=== PATIENT | female | born 1985 | race Caucasian/White ===

== ENCOUNTER 2016-08-31 07:41 | Emergency (ER) | payer MEDICAID, OTHER ==
[~2016-08-31] VITALS: Ht 162.6 cm; Wt 75.0 kg
[2016-08-31 07:43] VITALS: BP 104/65; PULSE 84; RESP 16; TEMP 98.8; O2SAT 99
[2016-08-31] MEDS ORDERED: SODIUM CHLOR 0.9% 1000 ML INJ 1,000 ML IV SCH (08:19)
--- NOTE | 2016-08-31 08:23 | PD ---
HPI Chief Complaint: Abdominal Pain Time Seen by Provider: 08:19 Travel History International Travel<30 days: No Contact w/Intl Traveler<30days: No Traveled to known affect area: No History of Present Illness HPI Patient is a 30-year-old female presents to emergency department with epigastric pain and nausea and vomiting since last night, patient states that she's been having initial food emesis and then followed by yellow emesis. States this happened to her once in the distant past and she cannot member what was diagnosed. She states the abdominal pain is fairly intense. Sharp in nature. Nonradiating. States been gradually worsening. Denies any vaginal bleeding vaginal discharge possibility for . PFSH Past Medical History Depression: Yes ?: Not LMP: 08/22/16 : 5 Para: 2 Miscarriage: 1 : 2 Past Surgical History Section: Yes (X2) Gynecologic Surgery: Yes ( X 2) Social History Alcohol Use: Yes Tobacco Use: Yes (2-3 CIGS/DAY) Substance Use: No Allergies-Medications (Allergen,Severity, Reaction): Coded Allergies: No Known Allergies (Unverified , 08/31/16) Reported Meds & Prescriptions Reported Meds & Active Scripts Active Maalox Max Liq (Rrltdrqv-Nydlzrbik-Ycrcqetyftn Liq) 400-400-40 Mg/5 Ml Susp 10- 20 Ml PO QID PRN Take between meals or as directed. Shake well. Maximum 60 ml/24 hrs. Zofran Odt (Ondansetron Odt) 4 Mg Tab 4 Mg SL Q6HR PRN Review of Systems Except as stated in HPI: all other systems reviewed are Neg Physical Exam Narrative GENERAL: Well-developed well-nourished, no apparent distress, ambulates to and from the bathroom and no distress.. SKIN: Focused skin assessment warm/dry. HEAD: Atraumatic. Normocephalic. EYES: Pupils equal and round. No scleral icterus. No injection or drainage. ENT: No nasal bleeding or discharge. Mucous membranes pink and moist. NECK: Trachea midline. No JVD. CARDIOVASCULAR: Regular rate and rhythm. No murmur appreciated. RESPIRATORY: No accessory muscle use. Clear to auscultation. Breath sounds equal bilaterally. GASTROINTESTINAL: Abdomen soft, non-tender, nondistended. Hepatic and splenic margins not palpable. Dock[place] sign negative, no tenderness over the appendix, no rebound no percussive tenderness. This a benign abdomen. MUSCULOSKELETAL: No obvious deformities. No clubbing. No cyanosis. No edema. NEUROLOGICAL: Awake and alert. No obvious cranial nerve deficits. Motor grossly within normal limits. Normal speech. PSYCHIATRIC: Appropriate mood and affect; insight and judgment normal. Data Data Last Documented VS Vital Signs Date Time Temp Pulse Resp B/P Pulse Ox O2 Delivery O2 Flow Rate FiO2 08/31/16 09:36 78 16 110/68 98 08/31/16 07:43 98.8 Room Air Orders Urinalysis - C+S If Indicated (08/31/16 08:09) Ed Urine Pregnancytest Poc (08/31/16 08:09) Complete Blood Count With Diff (08/31/16 08:19) Comprehensive Metabolic Panel (08/31/16 08:19) Lipase (08/31/16 08:19) Iv Access Insert/Monitor (08/31/16 08:19) Ecg Monitoring (08/31/16 08:19) Oximetry (08/31/16 08:19) Ondansetron Inj (Zofran Inj) (08/31/16 08:30) Sodium Chlor 0.9% 1000 Ml Inj (Ns 1000 M (08/31/16 08:19) Sodium Chloride 0.9% Flush (Ns Flush) (08/31/16 08:30) Ketorolac Inj (Toradol Inj) (08/31/16 08:30) Labs Laboratory Tests Test 08/31/16 08/31/16 08:17 08:30 Urine Color YELLOW Urine Turbidity HAZY Urine pH 8.5 Urine Specific [place] 1.028 Urine Protein 30 mg/dL Urine Glucose (UA) NEG mg/dL Urine Ketones NEG mg/dL Urine Occult Blood NEG Urine Nitrite NEG Urine Bilirubin NEG Urine Urobilinogen LESS THAN 2.0 MG/DL Urine Leukocyte Esterase NEG Urine RBC 2 /hpf Urine WBC 2 /hpf Urine Squamous Epithelial 10 /hpf Cells Urine Mucus FEW /lpf Microscopic Urinalysis Comment CULT NOT INDICATED White Blood Count 6.4 TH/MM3 Red Blood Count 4.31 MIL/MM3 Hemoglobin 13.3 GM/DL Hematocrit 38.3 % Mean Corpuscular Volume 88.9 FL Mean Corpuscular Hemoglobin 31.0 PG Mean Corpuscular Hemoglobin 34.8 % Concent Red Cell Distribution Width 12.9 % Platelet Count 194 TH/MM3 Mean Platelet Volume 9.3 FL Neutrophils (%) (Auto) 85.5 % Lymphocytes (%) (Auto) 9.2 % Monocytes (%) (Auto) 4.6 % Eosinophils (%) (Auto) 0.5 % Basophils (%) (Auto) 0.2 % Neutrophils # (Auto) 5.4 TH/MM3 Lymphocytes # (Auto) 0.6 TH/MM3 Monocytes # (Auto) 0.3 TH/MM3 Eosinophils # (Auto) 0.0 TH/MM3 Basophils # (Auto) 0.0 TH/MM3 CBC Comment DIFF FINAL Differential Comment Sodium Level 140 MEQ/L Potassium Level 3.7 MEQ/L Chloride Level 105 MEQ/L Carbon Dioxide Level 27.7 MEQ/L Anion Gap 7 MEQ/L Blood Urea Nitrogen 14 MG/DL Creatinine 0.67 MG/DL Estimat Glomerular Filtration 105 ML/MIN Rate Random Glucose 113 MG/DL Calcium Level 8.8 MG/DL Total Bilirubin 0.9 MG/DL Aspartate Amino Transf 19 U/L (AST/SGOT) Alanine Aminotransferase 26 U/L (ALT/SGPT) Alkaline Phosphatase 41 U/L Total Protein 7.2 GM/DL Albumin 3.6 GM/DL Lipase 93 U/L MDM Medical Decision Making Medical Screen Exam Complete: Yes Emergency Medical Condition: Yes Differential Diagnosis [place] otitis unlikely, cholecystitis unlikely, gastritis, , gastroenteritis, peptic ulcer disease, Narrative Course Patient was roomed in emergency department, she appears well and in no obvious distress. She was given Toradol for pain. Her basic labs including a CBC CMP UA lipase and urine test are all reassuring. There is no indication for imaging at this time. The patient is feeling better on my reassessment her abdomen remains benign. She is stable for discharge to follow-up with a primary care physician. Patient states she isn't sure but does not have a primary care physician. Recommended that she call her insurance, and be assigned a primary care physician in follow-up at her earliest convenience. Discussed return to ED criteria symptomatically management home. Diagnosis Primary Impression: Epigastric abdominal pain Additional Impression: Gastritis Qualified Code: K29.70 - Gastritis without bleeding, unspecified chronicity, unspecified gastritis type Departure Forms: Tests/Procedures, Work Release Enter return to work date: September 01, 2016 Additional Instructions: Follow-up with your insurance company to establish a primary care physician. Med/Other Pt SpecificInfo: Prescription(s) given Scripts Onzdjtjy-Rlrbqixrc-Nuuwtfkzdxz Liq (Maalox Max Liq)400-400-40 Mg/5 Ml [id number] Ml PO QID PRN (INDIGESTION OR UPSET STOMACH) #1 BOTTLE Ref 0 Take between meals or as directed. Shake well. Maximum 60 ml/24 hrs. Prov:Huy Kwong MD 08/31/16 Ondansetron Odt (Zofran Odt)4 Mg Tab4 Mg SL Q6HR PRN (Nausea/Vomiting) #30 TAB Ref 0 Prov:Huy Kwong MD 08/31/16 Disposition: 01 DISCHARGE HOME Condition: Stable Huy Kwong MD August 31, 2016 08:23
[2016-08-31] MEDS ORDERED: ONDANSETRON HCL 4 MG/2 ML VIAL IVP ONE (08:30)
[2016-08-31] MEDS ORDERED: KETOROLAC TROMETHAMINE 30 MG/ML (IVP) VIAL IVP ONE (08:30)
[2016-08-31] MEDS ORDERED: SODIUM CHLORIDE 0.9% FLUSH 10 ML FLUSH IV FLUSH PRN (08:30)
[2016-08-31 08:38] LABS: BLOOD, URINE NEG (NEG); COMMENT (UR) CULT NOT INDICATED; CULTURE IF INDICATED CULT NOT INDICATED; GLUCOSE,URINE NEG (NEG); KETONE, URINE NEG (NEG); MUCUS URINE FEW /lpf (OCC); NITRITE,URINE NEG (NEG); PH, URINE 8.5 (5.0-8.5); SQUAMOUS EPITHELIAL CELL URINE 10 /hpf (0-5); URINE COLOR YELLOW (YELLW/STRAW)
[2016-08-31 08:43] LABS: AUTOMATED NEUTROPHIL # 5.4 TH/MM3 (1.8-7.7); BASOPHIL % 0.2 % (0.0-2.0); EOSINOPHIL % 0.5 % (0.0-4.0); HEMATOCRIT 38.3 % (35.0-46.0); HEMO FLAGS DIFF FINAL; LYMPH % 9.2 % (9.0-44.0); LYMPHOCYTE # 0.6 TH/MM3 (1.0-4.8); MEAN CELL VOLUME 88.9 FL (80.0-100.0); MEAN CORPUSCULAR HGB CONC 34.8 % (32.0-36.0); MONO % 4.6 % (0.0-8.0); NEUT % 85.5 % (16.0-70.0); PLATELET COUNT 194 TH/MM3 (150-450); RED BLOOD COUNT 4.31 MIL/MM3 (4.00-5.30); RED CELL DISTRIBUTION WIDTH 12.9 % (11.6-17.2); WHITE BLOOD COUNT 6.4 TH/MM3 (4.0-11.0)
[2016-08-31 08:57] LABS: ALT (GPT) 26 U/L (10-53); ANION GAP 7 MEQ/L (5-15); AST (GOT) 19 U/L (15-37); BICARBONATE 27.7 MEQ/L (21.0-32.0); BLOOD UREA NITROGEN 14 MG/DL (7-18); CHLORIDE 105 MEQ/L (98-107); GLOMERULAR FILTRATION RATE 105 ML/MIN (>89); POTASSIUM 3.7 MEQ/L (3.5-5.1); SODIUM (NA) 140 MEQ/L (136-145)
[2016-08-31 09:00] LABS: ALKALINE PHOSPHATASE 41 U/L (45-117); TOTAL BILIRUBIN ADULT 0.9 MG/DL (0.2-1.0)
[2016-08-31] MEDS ORDERED: MAALSUS PO (09:08)
[2016-08-31] MEDS ORDERED: ZOFR4TAB3 SL (09:08)
[2016-08-31 09:36] VITALS: BP 110/68
== END 2016-08-31 09:37 | disposition home or self-care (01) ==
LOC: NEPE 07:41
DX: K29.70 Gastritis, unspecified, without bleeding (principal)
CPT/HCPCS: 80053; 81001; 83690; 84703; 85025; 96374; 96375; 99284; J1885; J2405; J7030